=== PATIENT | female | born 2005 | race Asian ===

== ENCOUNTER 2025-02-22 22:37 | Emergency (ER) | payer BC, SELFPAY ==
[2025-02-22 22:39] VITALS: BMI 26.5
[2025-02-22 22:59] VITALS: BP 148/84; PULSE 89; RESP 16; TEMP 37; O2SAT 98
--- NOTE | 2025-02-22 23:02 | EDNOTE_ITS ---
ED Animal Bite RME/HPI General Chief Complaint: Animal Bite Stated Complaint: DOG BITE TO RIGHT SHOULDER AREA 2 DAYS AGO Time Seen by Provider: 02/22/25 22:47 Source: patient, RN notes reviewed and old records reviewed Arrival date/time: 02/22/25 22:37 Mode of arrival: ambulatory Limitations: no limitations RME / HPI RME / HPI narrative: 19yof presents to ED for dog bite that occurred 2 days ago. Patient states her boyfriend's puppy bit her right shoulder while they were playing. She has applied antibiotic ointment to abrasions since injury occurred. No redness, swelling or drainage is reported. Unknown last tetanus vacc. Related Data Previous Rx's ?Medication ?Instructions ?Recorded amoxicillin 875 mg-potassium 1 tab PO BID 5 days #10 t abs 02/22/25 clavulanate 125 mg tablet Allergies Allergy/AdvReac Type Severity Reaction Status Date / Time No Known Allergies Allergy Verified 02/22/25 22:38 Review of Systems Review of Systems Systems Reviewed: All systems reviewed, normal except as documented Integumentary/Breasts Comments: Reports abrasion Past Medical History Surgical History OTHER SURGICAL HX: Denies past surgical history Social History SMOKING STATUS: Current some day smoker (Vapes) SUBSTANCE USE: does not use and marijuana ALCOHOL: Never Past Medical History Comments PMH COMMENT: Denies past medical history ED Exam General Limitations: Present no limitations General appearance: Present alert and in no apparent distress Head Head exam: Present atraumatic and normocephalic Eye Eye exam: Present normal appearance, PERRL and EOMI ENT ENT exam: Present normal exam and mucous membranes moist Neck Neck exam: Present normal inspection and full ROM Chest Chest inspection: Present normal inspection and symmetric chest wall rise Respiratory Respiratory exam: Present normal lung sounds bilaterally; Absent respiratory distress Cardiovascular Cardiovascular exam: Present regular rate and normal rhythm Extremities Exam Extremities exam: Present normal inspection and full ROM Neurological Exam Neurological exam: Present alert and oriented X3 Psychiatric Psychiatric exam: Present normal affect and normal mood Skin Skin exam: Present warm, dry and other (Small superficial abrasions to right anterior shoulder. No erythema, swelling or drainage) Course Quality Measures none Orders Category Date Time Status TET,DIP/PERT AC (Adult)-Tdap [Boostrix Adult (Tdap) Med 02/22/25 23:02 Discontinued Vacc] 0.5 ml IMI .ONCE ONE Vital Signs Vital signs: Vital Signs Temperature 98.6 F 02/22/25 22:59 Pulse Rate 89 02/22/25 22:59 Respiratory Rate 16 02/22/25 22:59 Blood Pressure 148/84 H 02/22/25 22:59 Pulse Oximetry (%) 98 02/22/25 22:59 Oxygen Delivery Method Room Air 02/22/25 22:59 Animal Bite MDM Narrative MDM Narrative:: 19yof presents to ED for dog bite that occurred 2 days ago. Patient states her boyfriend's puppy bit her right shoulder while they were playing. She has applied antibiotic ointment to abrasions since injury occurred. No redness, swelling or drainage is reported. Unknown last tetanus vacc. Abrasions to right shoulder are superficial, no evidence of infection. Tdap updated. Instructed to continue home wound care as needed. Stable for discharge, RTED precautions given. Patient data External records reviewed:: [facility] previous records (06/09/2024 ED visit for abdominal pain) Clinical information provided by:: patient Social determinants that could affect healthcare access:: other (specify) (Poor access to healthcare) Patient has the following chronic illnesses:: None How is presenting disease/condition affected by chronic disease/condition?: no chronic disease Evaluation data The following diagnostics were reviewed and interpreted by me:: other (specify) (None) Lab and/or radiology exams considered but not ordered:: Shoulder x-rays: Do not suspect fracture or foreign body Interpretation Summary: na Medications / Prescriptions Medications or Prescriptions considered but not ordered:: None Medication administrations:: Medication Administration History Discontinued Medications Diphtheria/Tetanus/Acell Pertussis (Diphth,Pertuss(Acell),Tet Vac 0.5 Ml Syr- A dult) 0.5 ml IMi .ONCE ONE Stop: 02/22/25 23:03 Last Admin: 02/22/25 23:10 Dose: 0.5 ml Documented By: KF Above medication administered in ED Consultations Consultation(s) initiated? (list below): No Diagnosis Differential diagnosis animal bite: dog bite and other (Laceration, abrasion, skin tear, avulsion) Most likely diagnosis given after review of the tests above:: Dog bite, abrasion Admission Indicated Admission indicated?: not indicated Admission Request Was there a request for admission?: No Disposition Plan Disposition Plan: Discharge Discharge Attestation Discharge Attestation: The patient and all family members were given an opportunity to ask questions and understood the discharge instructions. Discharge instructions specifically effects, indications for sooner follow up or return to the emergency department, and the expected course of current diagnosis. Patient condition: Stable Discharge Plan Plan Patient Disposition: HOME (Self Care) Patient condition on transfer: Stable Prescriptions/Referrals Prescriptions/Med Rec: New amoxicillin-pot clavulanate 875-125 mg tablet 1 tab PO BID 5 Days Qty: 10 0RF Problem List Clinical Impression: Abrasion of shoulder, right, Dog bite Patient/Caregiver Discharge Instructions Education Materials: ED Dog Bite Print Language: Citizen [place] Stand Alone Forms: Terrie Award Info., Patient Portal Info Letter PA/TELECOMM[employer]ICATION[employer] EQUIPMENT INSTALLER Supervising Physician PA/TELECOMMUNICATIONS EQUIPMENT INSTALLER Supervising Physician: [place]
[2025-02-22] MEDS: DIPHTH,PERTUSS(ACELL),TET VAC 0.5 ML SYR- ADULT IMi (23:10)
== END 2025-02-22 23:25 | disposition home or self-care (01) ==
LOC: SERX 23:17
PROVIDERS: Emergency Provider Emergency Medicine
DX: S40.211A Abrasion of right shoulder, initial encounter (principal); W54.0XXA Bitten by dog, initial encounter; Z23 Encounter for immunization
CPT/HCPCS: 90471; 90715; 99282